=== PATIENT | female | born 1975 | race Two or more races ===

== ENCOUNTER 2017-08-13 16:06 | Emergency (ER) | payer MEDICAID ==
[2017-08-13 16:14] VITALS: BP 101/80; PULSE 96; RESP 18; TEMP 98.4; O2SAT 98
[2017-08-13] MEDS ORDERED: CLINDAMYCIN 150 MG CAP PO ONE (16:51)
--- NOTE | 2017-08-13 16:55 | EDPHY ---
H & P Stated Complaint: Infection on L cheek;just out of skilled nursing and thinks she is also malnourished Time Seen by Provider: 08/13/17 16:43 HPI/ROS: CHIEF COMPLAINT: Skin infection HISTORY OF PRESENT ILLNESS: The patient is a 42-year-old female who got released from skilled nursing today. She is concerned about MRSA on her left cheek. She has a pimple in that area that is been there for several days. She states that she was also extremely malnourished while in the skilled nursing for 60 days. She would not eat the me that they provided because it was so disgusting. She is also requesting a vitamin B shot. No fevers. No vomiting. No abdominal pain REVIEW OF SYSTEMS: Constitutional: denies: chills, fever, recent illness, recent injury EENTM: denies: blurred vision, double vision, nose congestion Respiratory: denies: cough, shortness of breath Cardiac: denies: chest pain, irregular heart rate, lightheadedness, palpitations Gastrointestinal/Abdominal: denies: abdominal pain, diarrhea, nausea, vomiting, blood streaked stools Genitourinary: denies: dysuria, frequency, hematuria, pain Musculoskeletal: denies: joint pain, muscle pain Skin: See HPI Neurological: denies: headache, numbness, paresthesia, tingling, dizziness, weakness Hematologic/Lymphatic: denies: blood clots, easy bleeding, easy bruising Immunologic/allergic: denies: HIV/AIDS, transplant EXAM: GENERAL: Well-appearing, well-nourished and in no acute distress. HEAD: Atraumatic, normocephalic. EYES: Pupils equal round and reactive to light, extraocular movements intact, sclera anicteric, conjunctiva are normal. ENT: TMs normal, nares patent, oropharynx clear without exudates. Moist mucous membranes. NECK: Normal range of motion, supple without lymphadenopathy or JVD. LUNGS: Breath sounds clear to auscultation bilaterally and equal. No wheezes rales or rhonchi. HEART: Regular rate and rhythm without murmurs, rubs or gallops. ABDOMEN: Soft, nontender, normoactive bowel sounds. No guarding, no rebound. No masses appreciated. BACK: No CVA tenderness, no spinal tenderness, step-offs or deformities EXTREMITIES: Normal range of motion, no pitting or edema. No clubbing or cyanosis. NEUROLOGICAL: Cranial nerves II through XII grossly intact. Normal speech, normal gait. 5/5 strength, normal movement in all extremities, normal sensation PSYCH: Normal mood, normal affect. SKIN: Normal sized acne/abscess to left cheek. Source: Patient Exam Limitations: No limitations - Personal History LMP (Females 10-55): 1-7 Days Ago Current Tetanus Diphtheria and Acellular Pertussis (TDAP): Yes - Medical/Surgical History Hx Asthma: No Hx Chronic Respiratory Disease: No Hx Diabetes: No Hx Cardiac Disease: No Hx Renal Disease: No Hx Cirrhosis: No Other PMH: DIABETES TYPE 2, DEPRESSION/ANXIETY, L KNEE SURG X3, C-SECT - Social History Smoking Status: Former smoker Alcohol Use: Sober Drug Use: None Constitutional: Initial Vital Signs Temperature (C) 36.9 C 08/13/17 16:10 Heart Rate 96 08/13/17 16:10 Respiratory Rate 18 08/13/17 16:10 Blood Pressure 101/80 08/13/17 16:10 O2 Sat (%) 98 08/13/17 16:10 Allergies/Adverse Reactions: codeine Allergy (Severe, Verified 08/13/17 16:09) throat swells Sulfa (Sulfonamide Antibiotics) Allergy (Severe, Verified 08/13/17 16:09) throat closes Home Medications: Medication Instructions Recorded Paxil 05/15/16 metFORMIN HCL [Metformin HCl] 500 mg PO BID #60 tablet 05/15/16 Clindamycin HCl [Clindamycin] 300 mg PO TID #30 cap 08/13/17 hydrOXYzine HCL [hydrOXYzine HCL 25 mg PO Q8 08/13/17 (RX)] traZODone [traZODONE 50MG (*)] 50 mg PO 08/13/17 Medical Decision Making ED Course/Re-evaluation: Will not be able to provide her vitamin-B shot. I will start her on clindamycin because she has a sulfa allergy. She is happy with this plan. She declines further workup or testing. Differential Diagnosis: Partial list of the Differential diagnosis considered include but were not limited to; acne, abscess, cellulitis and although unlikely based on the history and physical exam, I also considered sepsis, pneumonia, dehydration. I discussed these differential diagnoses and the plan with the patient as well as the usual and expected course. The patient understands that the diagnosis is provisional and that in medicine we are not always correct and that further workup is often warranted. Usual and customary warnings were given. All of the patient's questions were answered. The patient was instructed to return to the emergency department should the symptoms at all worsen or return, otherwise to followup with the physician as we discussed. - Data Points Medications Given: Discontinued Medications Clindamycin (Clindamycin) 150 mg PO EDNOW ONE PRN Reason: Protocol Stop: 08/13/17 16:52 Last Admin: 08/13/17 17:12 Dose: 150 mg Departure - Departure Disposition: Home, Routine, Self-Care Clinical Impression: Acne Qualifiers: Acne type: unspecified acne Qualified Code(s): L70.9 - Acne, unspecified Condition: Fair Instructions: MRSA (Methicillin-Resistant Staphylococcus Aureus) (ED), Acne (ED ) Referrals: NONE *PRIMARY CARE P,. [Primary Care Provider] - As per Instructions Prescriptions: Clindamycin HCl [Clindamycin] 300 mg PO TID #30 cap
== END 2017-08-13 17:16 | disposition home or self-care (01) ==
DX: L70.9 Acne, unspecified (principal); E11.9 Type 2 diabetes mellitus without complications; Z79.84 Long term (current) use of oral hypoglycemic drugs; Z87.891 Personal history of nicotine dependence